=== PATIENT | male | born 2000 | race Caucasian/White ===

== ENCOUNTER 2019-02-28 20:38 | Emergency (ER) | payer BC ==
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
--- NOTE | 2019-02-28 22:21 | CRLCR ---
Indication: Injury and pain Technique: Left foot 3 views. Comparison: None Findings: Bones: Alignment is normal. No fractures or bone lesions. Joint spaces: Unremarkable. Soft tissues: Unremarkable. Impression: No sign of acute injury. Dictated by Federico Deng MD @ Feb 28 2019 10:18PM Signed by Dr. Federico Deng @ Feb 28 2019 10:19PM
== END 2019-02-28 22:14 | disposition home or self-care (01) ==
LOC: JP.ED 20:38
DX: S90.32XA Contusion of left foot, initial encounter (principal); S90.812A Abrasion, left foot, initial encounter; W23.0XXA Caught, crushed, jammed, or pinched between moving objects, initial encounter
CPT/HCPCS: 73630-LT; 99283-25

== ENCOUNTER 2021-05-27 11:04 | Emergency (ER) | payer BC, MEDICAID, OTHER ==
[2021-05-27] MEDS ORDERED: Diphtheria,Pertussis(Acell),Tetanus Vaccine 0.5 ML Syringe IM ONE (11:48)
[2021-05-27] MEDS ORDERED: Bacitracin Oint 1 GM U/D Packet TOP ONE (11:48)
[2021-05-27] MEDS ORDERED: Lidocaine 1% with EPINEPHrine 1:100,000 50 ML MDV INFILT ONE (11:48)
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
== END 2021-05-27 12:34 | disposition home or self-care (01) ==
LOC: JP.ED 11:04
DX: S71.011A Laceration without foreign body, right hip, initial encounter (principal); Z23 Encounter for immunization; W26.0XXA Contact with knife, initial encounter; Y92.009 Unspecified place in unspecified non-institutional (private) residence as the place of occurrence of the external cause
CPT/HCPCS: 12002; 90471; 90715; 99282-25